=== PATIENT | female | born 1935 | race Caucasian/White ===

== ENCOUNTER 2017-03-05 08:16 | Emergency (ER) | payer OTHER ==
[2017-03-05 08:45] VITALS: BP 133/82
--- NOTE | 2017-03-05 08:55 | ED Physician Documentation ---
Skin Rash - HISTORIAN Historian: patient - HPI Stated Complaint: tick bite Chief Complaint: Skin Rash Additional Information: found a tick on her leg yesterday Front/Back of Body, Lg (Lea): 1 - area of cellulitis Onset: days ago (1) Timing: still present Duration: worse Location: LLE Quality: itchy Identified Cause?: Yes (tick) Where: home Context: Medication Exposure: none Context: Food Exposure: none Context: Other Exposure: other (tick bite) Further Comments: no - ROS CONST: none CVS/RESP: none EYES/ENT: none GI/: none MS/SKIN/LYMPH: none NEURO/PSYCH: none - PAST HX Past History: other (gerd) Other History: other (hyperlipidemia) Surgeries/Procedures: No Immunizations: referred to PCP Allergies/Adverse Reactions: Allergies Allergy/AdvReac Type Severity Reaction Status Date / Time No Known Drug Allergies Allergy Verified 03/05/17 08:36 Home Medications: Ambulatory Orders Medication Instructions Recorded Chlordiazepoxide HCl [Librium] 10 mg PO QID 03/05/17 - SOCIAL HX Smoking History: non-smoker Alcohol Use: none Drug Use: none - FAMILY HX Family History: none - VITAL SIGNS Vital Signs: Vital Signs Temp Pulse Resp BP Pulse Ox 98.5 F 69 14 133/82 98 03/05/17 08:28 03/05/17 08:28 03/05/17 08:28 03/05/17 08:28 03/05/17 08:28 - REVIEWED ASSESSMENTS Nursing Assessment Reviewed: Yes Vitals Reviewed: Yes Progress - Results/Orders Results/Orders: no testing ordered - Progress Progress: pt. stable entire time in er Critical Care Note - Critical Care Note Total Time (mins): 0 ED Results Lab/Radiology - Lab Results Lab Results: none ordered - Radiology Radiology Impressions: none ordered Skin Rash Physical Exam - EXAM General Appearance: no acute distress Skin: warm,dry, erythema (3.5 x 3.5 cm patch of cellulitis inner distal left leg ) Location: extremities Character: patchy Symptoms: warmth, tenderness, inflammation Extremities: nml ROM, no edema EENT: eyes nml inspection, lips nml, gums nml, pharynx nml Neck: trachea midline, no swelling Respiratory: no resp distress, chest non-tender, breath sounds normal CVS: reg. rate & rhythm, heart sounds nml Abdomen: non-tender, no organomegaly, nml bowel sounds, no distention Neuro/Psych: oriented x3, CN's nml as tested, motor nml, sensation nml, mood/ affect nml Discharge Clincal Impression: Cellulitis Qualifiers: Site of cellulitis: extremity Site of cellulitis of extremity: lower extremity Laterality: left Qualified Code(s): L03.116 - Cellulitis of left lower limb Referrals: Rashad Frias MD [Primary Care Provider] - 2 Days Home Medications: Ambulatory Orders Chlordiazepoxide HCl [Librium] 10 mg PO QID 03/05/17 Comments: discharged in stable condition with script for triamcinolone cream 0.1% apply tid and doxycycline 100 mg 1 p.o. bid #20 Condition: Stable Disposition: 01 HOME, SELF-CARE Decision to Admit: NO Decision Time: 08:45
== END 2017-03-05 08:51 | disposition home or self-care (01) ==
LOC: ED 08:16
DX: L03.116 Cellulitis of left lower limb (principal); S80.862A Insect bite (nonvenomous), left lower leg, initial encounter; W57.XXXA Bitten or stung by nonvenomous insect and other nonvenomous arthropods, initial encounter; Y93.9 Activity, unspecified; Y99.9 Unspecified external cause status
CPT/HCPCS: 99283

== ENCOUNTER 2017-03-16 10:11 | Outpatient (CLI) | payer OTHER ==
[2017-03-16 10:57] LABS: eGFR (African) > 60; eGFR (Non-African) > 60
== END 2017-03-16 10:12 ==
LOC: LAB 10:11
PROVIDERS: ATTEND Family Medicine
DX: E78.5 Hyperlipidemia, unspecified (principal); I10 Essential (primary) hypertension
CPT/HCPCS: 36415; 80053; 80061

== ENCOUNTER 2017-04-14 16:30 | Outpatient (CLI) | payer OTHER ==
[2017-04-14 16:44] LABS: BASOPHILS % 0.7 (0.0-1.5); EOSINOPHILS % 2.2 % (0.0-6.8); MEAN CORPUSCULAR HEMOGLOBIN 33.5 pg (28.0-34.0); MEAN CORPUSCULAR VOLUME 98.4 fl (80.0-100.0); MONOCYTES % 5.3 % (0.0-11.0); NEUTROPHILS # 4.8 # k/uL (1.4-7.7)
[2017-04-14 16:47] LABS: APPEARANCE,URINE Clear (CLEAR); COLOR,URINE Yellow (YELLOW); OCCULT BLOOD,URINE Negative (NEGATIVE); UROBILINOGEN URINE 0.2 Eu (0.2-1.0)
--- NOTE | 2017-04-14 19:23 | Diagnostic Imaging Report ---
PAL KANG [facility] [address] [facility] [address] [address] Report Submission Date: Apr 14, 2017 5:21:35 PM CDT Patient Study Name: RYAN MORA Date: Apr 14, 2017 4:47:55 PM CDT Modality Type: CR Gender: F Description: CHEST : 33 Institution: [facility] Physician: PAL KANG Examination: PA and lateral chest. History: Evaluate lung montelongo. Comparison exam: 30 April 2011 Findings: PA lateral chest demonstrate a normal cardiac silhouette. Mild tortuosity of thoracic aorta. Stable prominence of the right hilum: likely vasculature. Stable interstitial changes. No focal infiltrate. No effusion. No blunting of the costophrenic margins. Osseous structures are appropriate for age. Impression: Stable examination. No acute process. Electronically signed on Apr 14, 2017 5:21:35 PM CDT by: Yariel JONES
== END 2017-04-14 16:32 ==
LOC: RAD 16:30
PROVIDERS: ATTEND Family Medicine
DX: I10 Essential (primary) hypertension (principal); J47.9 Bronchiectasis, uncomplicated; R53.82 Chronic fatigue, unspecified; R10.9 Unspecified abdominal pain
CPT/HCPCS: 36415; 71020; 81002; 85025

== ENCOUNTER 2018-11-23 10:23 | Outpatient (CLI) | payer OTHER ==
[2018-11-23 10:49] LABS: BASOPHILS % 0.8 (0.0-1.5); EOSINOPHILS % 2.3 % (0.0-6.8); MONOCYTES % 6.5 % (0.0-11.0); NEUTROPHILS # 5.1 # k/uL (1.4-7.7)
[2018-11-23 10:56] LABS: eGFR (Non-African) > 60
== END 2018-11-23 10:25 ==
LOC: LAB 10:23
PROVIDERS: ATTEND Family Medicine
DX: I10 Essential (primary) hypertension (principal); E78.5 Hyperlipidemia, unspecified
CPT/HCPCS: 36415; 80053; 80061; 85025

== ENCOUNTER 2018-12-02 13:58 | Emergency (ER) | payer OTHER ==
[2018-12-02] MEDS ORDERED: 0.9 % SODIUM CHLORIDE 1,000 ML IV ONE ×2 (14:05→14:08)
[2018-12-02] MEDS ORDERED: METOPROLOL TARTRATE 5 MG/5 ML VIAL IV ONE ×3 (14:06→15:28)
[2018-12-02 14:30] LABS: eGFR (Non-African) > 60
[2018-12-02 14:45] LABS: EOSINOPHILS % 1 % (0-7); MONOCYTES % 9 % (0-11); SEGMENTED NEUTROPHILS % 53 % (39-79)
--- NOTE | 2018-12-02 14:48 | ED Physician Documentation ---
General Adult - HISTORIAN Historian: patient, other (Dr Frias) - HPI Chief Complaint: General Adult Further Comments: yes (83 year old female patient sent over from Dr Frias's office with elevated HR and hypotension. Patient is schedule to have allergy skin testing with Dr Romero - was weaned off her Metoprolol 150mg po qd and placed on Hydralazine in preparation for testing. Patient presented to Dr Frias office with complaint of "not feeling well" today. HR 144 in office with 96/62 BP. Patient sent to Er for further evaluation. Hydralazine at 25mg TID. Patient states symptoms started at 0930 this morning.) - ROS CONST: other (medication change for allergy testing) EYES/ENT: none CVS/RESP: shortness of breath, other (tachycardia) GI/: none MS/SKIN/LYMPH: none NEURO/PSYCH: denies: headache - PAST HX Past History: COPD, hypertension Other History: other (GERD) Allergies/Adverse Reactions: Allergies Allergy/AdvReac Type Severity Reaction Status Date / Time No Known Drug Allergies Allergy Verified 03/05/17 08:36 - SOCIAL HX Smoking History: non-smoker - FAMILY HX Family History: No - VITAL SIGNS Vital Signs: Vital Signs Temp Pulse Resp BP Pulse Ox 133/82 03/05/17 08:51 - REVIEWED ASSESSMENTS Nursing Assessment Reviewed: Yes Vitals Reviewed: Yes Progress - Progress Progress: Patient's heart rate improving with lying down and relaxation techniques; now 120 on monitor. Lopressor 5mg IV given - HR down to 89, SR with occasional PVC. Lab results reviewed. Troponin elevated .51 - discussed with Dr Frias, no beds available at our facility. Discussed lab, xray and EKG results with patient. Patient and family prefer [facility]. 1515 Call to [facility], Patient accepted by Dr Florentino 1700 Awaiting transfer; patient resting quietly. - EKG/XRAY/CT EKG: rhythm (ST with PVCs, rate 132) ED Results Lab/Radiology - Lab Results Lab Results: Lab Results 12/02/18 12/02/18 14:08 14:08 WBC 12.20 K/ul H K/ul (4.00-12.00) RBC 4.75 M/ul M/ul (3.90-5.20) Hgb 15.7 g/dL g/dL (12.0-16.0) Hct 46.9 % H % (34.5-46.5) MCV 99.0 fl fl (80.0-100.0) MCH 33.0 pg pg (28.0-34.0) MCHC 33.4 g/dL g/dL (30.0-36.0) RDW 12.9 % % (11.3-14.3) Plt Count 267 K/mm3 K/mm3 (130-400) Neut % (Auto) 56.4 % % (39.0-79.0) Lymph % (Auto) 32.9 % % (16.0-50.0) Mercer % (Auto) 8.1 % % (0.0-11.0) Eos % (Auto) 1.1 % % (0.0-6.8) Baso % (Auto) 1.5 (0.0-1.5) Neut # (Auto) 6.9 # k/uL # k/uL (1.4-7.7) Lymph # (Auto) 4.0 # k/uL # k/uL (0.6-4.0) Mercer # (Auto) 1.0 # k/uL H # k/uL (0.0-0.9) Eos # (Auto) 0.1 # k/uL # k/uL (0.0-0.6) Baso # (Auto) 0.2 # k/uL # k/uL (0.0-0.5) Sodium 141 mmol/L mmol/L (136-145) Potassium 3.9 mmol/L mmol/L (3.5-5.1) Chloride 101 mmol/L mmol/L (98-107) Carbon Dioxide 25 mmol/L mmol/L (22-30) BUN 28 mg/dL H mg/dL (7-17) Creatinine 1.12 mg/dL H mg/dL (0.52-1.04) Est GFR ( Amer) > 60 (60 - ) Est GFR (Non-Af Amer) > 60 (60 - ) Glucose 104 mg/dL mg/dL (74-106) Calcium 10.2 mg/dL mg/dL (8.4-10.2) Total Bilirubin 0.6 mg/dL mg/dL (0.2-1.3) AST 86 U/L H U/L (15-46) ALT 21 U/L U/L (13-69) Alkaline Phosphatase 81 U/L U/L (38-126) Creatine Kinase 77 U/L U/L (30-135) Total Protein 8.1 g/dL g/dL (6.3-8.2) Albumin 4.9 g/dL g/dL (3.5-5.0) - Radiology Radiology Impressions: Portable chest History: Cough. Hypoxia. Portable chest dated December 02, 2018 is compared with PA and lateral chest radiographs from April 2017 and April 2011. The right hilum does appear larger on today's radiograph when compared with priors. This finding possibly could relate to differences between current AP and prior PA technique. However, a developing right hilar mass would not be excluded. There is a probable hiatal hernia. The heart is mildly enlarged with aortic atherosclerosis. There is old granulomatous disease. Pulmonary vascularity is normal. There is no infiltrate or pleural effusion. Impression: The right hilum does appear larger when compared with prior radiographs, possibly relating to differences between prior PA and current AP technique. However, a right hilar mass would not be excluded. Either standard PA and lateral chest radiographs or a chest CT with IV contrast would be recommended for further assessment. Otherwise, no active disease. Electronically signed on Dec 02, 2018 3:26:57 PM MARBLE MASON by: Yakelin Souza Will repeat xray - 2 view Chest xray ordered 1545 Repeat 2 View: Examination: PA and lateral chest. History: Evaluate lung montelongo. Comparison exam: 02 December 2018 Findings: PA and lateral views of the chest demonstrates a normal cardiac and mediastinal silhouette. Tortuous aorta with vascular calcifications. Stable prominence of the right hilar vasculature. Hilar granuloma. Chronic interstitial changes. No focal infiltrate. No blunting of the costophrenic margins. Stable left rib surgical changes. Impression: Chronic interstitial changes. No acute pulmonary process. Electronically signed on Dec 02, 2018 5:23:31 PM MARBLE MASON by: Yariel Arreola - Orders Orders: ED Orders Category Date Time Status Continuous EKG monitoring Q30M Care 12/02/18 14:08 Active Continuous Pulse Oximetry Q30M Care 12/02/18 14:[address] IV Lock 1T Care 12/02/18 14:09 Active CHEST 1VIEW [RAD] Stat Exams 12/02/18 14:08 Ordered CBC/PLATELET/DIFF Stat Lab 12/02/18 14:08 Completed CKMB Stat Lab 12/02/18 14:08 Received CMP Stat Lab 12/02/18 14:08 Completed CREATINE KINASE Stat Lab 12/02/18 14:08 Completed TROPONIN I (cTnI) Stat Lab 12/02/18 14:08 Received 0.9 % Sodium Chloride [Normal Saline] 1,000 ml Med 12/02/18 14:05 Discontinued IV .STK-MED 0.9 % Sodium Chloride [Normal Saline] 1,000 ml Med 12/02/18 14:08 Discontinued IV NOW Metoprolol Tartrate [Lopressor] Med 12/02/18 14:06 Discontinued 15 mg IV .STK-MED ONE Metoprolol Tartrate [Lopressor] Med 12/02/18 14:08 Discontinued 5 mg IV NOW ONE EKG WITH COMPARISON Stat Ther 12/02/18 14:09 Ordered General Adult Physical Exam - PHYSICAL EXAM GENERAL APPEARANCE: ANXIOUS EENT: eye inspection normal, ALEENA RESPIRATORY: chest non-tender, breath sounds normal, other (respirations labored) CVS: heart sounds normal, equal pulses, no murmur, no gallop, PMI nml, no JVD, no friction rub, tachycardia (ST with frequent PVC on arrival to ER. ) ABDOMEN: soft, no organomegaly, normal bowel sounds, no abdominal bruit, no distension SKIN: warm/dry, pallor EXTREMITIES: non-tender, normal range of motion, no evidence of injury, no edema, J, [employer] NEURO: oriented X3, CN's nml as tested, motor nml, sensation nml, mood/affect nml Discharge Clincal Impression: Tachycardia, Anxiety Acute IN Qualifiers: Myocardial infarction type: other Qualified Code(s): I21.A9 - Other myocardial infarction type Referrals: Rashad Frias MD [Primary Care Provider] - 2 Days Condition: Serious Disposition: 02 XFER SHT-TRM HOSP Decision to Admit: NO Decision Time: 16:00
[2018-12-02] MEDS ORDERED: POTASSIUM CHLORIDE 20 MEQ TABLET.ER PO ONE (15:28)
[2018-12-02 19:11] VITALS: BP 123/66
--- NOTE | 2018-12-03 04:08 | Diagnostic Imaging Report ---
JEROME SEVILLA (CIVIL ENGINEERING PROFESSIONAL) - ER [facility] [address] [facility].[address] [address] Report Submission Date: Dec 02, 2018 3:26:57 PM MEN'S SWIM COACH Patient Study Name: RAYN MORA Date: Dec 02, 2018 2:28:16 PM MEN'S SWIM COACH Modality Type: DX Gender: F Description: CHEST 1VIEW : 33 Institution: [facility] Physician: JEROME SEVILLA (CIVIL ENGINEERING PROFESSIONAL) - ER Portable chest History: Cough. Hypoxia. Portable chest dated December 02, 2018 is compared with PA and lateral chest radiographs from April 2017 and April 2011. The right hilum does appear larger on today's radiograph when compared with priors. This finding possibly could relate to differences between current AP and prior PA technique. However, a developing right hilar mass would not be excluded. There is a probable hiatal hernia. The heart is mildly enlarged with aortic atherosclerosis. There is old granulomatous disease. Pulmonary vascularity is normal. There is no infiltrate or pleural effusion. Impression: The right hilum does appear larger when compared with prior radiographs, possibly relating to differences between prior PA and current AP technique. However, a right hilar mass would not be excluded. Either standard PA and lateral chest radiographs or a chest CT with IV contrast would be recommended for further assessment. Otherwise, no active disease. Electronically signed on Dec 02, 2018 3:26:57 PM MEN'S SWIM COACH by: Yakelin JONES
--- NOTE | 2018-12-03 04:10 | Diagnostic Imaging Report ---
JEROME SEVILLA (MARBLE RUBBER) - ER [facility] [address] [facility].[address] [address] Report Submission Date: Dec 02, 2018 5:23:31 PM RETURNED GOODS REPAIRER Patient Study Name: RYAN MORA Date: Dec 02, 2018 4:35:07 PM RETURNED GOODS REPAIRER Modality Type: DX Gender: F Description: CHEST 2VIEW : 33 Institution: [facility] Physician: JEROME SEVILLA (MARBLE RUBBER) - ER Examination: PA and lateral chest. History: Evaluate lung montelongo. Comparison exam: 02 December 2018 Findings: PA and lateral views of the chest demonstrates a normal cardiac and mediastinal silhouette. Tortuous aorta with vascular calcifications. Stable prominence of the right hilar vasculature. Hilar granuloma. Chronic interstitial changes. No focal infiltrate. No blunting of the costophrenic margins. Stable left rib surgical changes. Impression: Chronic interstitial changes. No acute pulmonary process. Electronically signed on Dec 02, 2018 5:23:31 PM RETURNED GOODS REPAIRER by: Yariel JONES
== END 2018-12-02 19:11 | disposition short-term general hospital (02) ==
LOC: ED 13:58
DX: I21.A9 Other myocardial infarction type (principal); R00.0 Tachycardia, unspecified; F41.9 Anxiety disorder, unspecified
CPT/HCPCS: 36415; 71045; 71046; 80053; 82550; 82553; 84484; 85025; 93005; 96374; 99285; J3490; J7030